=== PATIENT | male | born 2000 | race Hispanic/Latino ===

== ENCOUNTER 2018-11-02 19:49 | Emergency (ER) | payer OTHER ==
[2018-11-02] MEDS ORDERED: DiphenhydrAMINE HCL 50 MG/ML VIAL ONE (19:58)
[2018-11-02] MEDS ORDERED: FAMOTIDINE/PF 20 MG/2 ML VIAL IV ONE (19:58)
[2018-11-02] MEDS ORDERED: HYDROXYZINE HCL 25 MG TABLET ONE (19:58)
== END 2018-11-02 21:01 | disposition home or self-care (01) ==
LOC: EDH 19:49
DX: T78.49XA Other allergy, initial encounter (principal); X58.XXXA Exposure to other specified factors, initial encounter
CPT/HCPCS: 96374; 96375; 99283; J1200; J3490